=== PATIENT | male | born 1990 | race Caucasian/White ===

== ENCOUNTER 2017-10-06 11:03 | Emergency (ER) | payer OTHER ==
[~2017-10-06] VITALS: Ht 167.6 cm; Wt 119.7 kg
[~2017-10-06 11:03] MED LIST: BENADRYL50 MG PO; EPIPEN ADU0.3 MG/0.3 IM; MOTRIN600 MG PO; PREDNISONE10 M1 PO
[2017-10-06] MEDS ORDERED: LIDODERM 5% P1 PATCH TD (12:07)
[2017-10-06] MEDS ORDERED: FLEXERIL10 MG PO (12:07)
[2017-10-06] MEDS ORDERED: MOTRIN800 MG PO (12:07)
[2017-10-06 12:16] VITALS: BP 176/105
== END 2017-10-06 12:18 | disposition home or self-care (01) ==
LOC: EME 11:03
DX: S16.1XXA Strain of muscle, fascia and tendon at neck level, initial encounter (principal); M62.838 Other muscle spasm; F17.200 Nicotine dependence, unspecified, uncomplicated; H50.89 Other specified strabismus
CPT/HCPCS: 72040; 93005; 99281; 99283